=== PATIENT | male | born 1995 | race Caucasian/White ===

== ENCOUNTER 2020-12-09 08:22 | Emergency (ER) | payer BC ==
[~2020-12-09] VITALS: Ht 185.4 cm; Wt 104.3 kg
[2020-12-09 08:41] VITALS: Ht 185.4 cm; Wt 104.3 kg
[2020-12-09 09:53] VITALS: BP 141/80
== END 2020-12-09 09:53 | disposition home or self-care (01) ==
LOC: ED 08:22
DX: M79.675 Pain in left toe(s) (principal); Z90.89 Acquired absence of other organs